=== PATIENT | male | born 1985 | race Caucasian/White ===

== ENCOUNTER → 2016-11-21 | Outpatient (REF) | payer SELFPAY | LOC: M SFHCCLAY 06:59 | PROVIDERS: ATTEND Nurse Practitioner Family | DX: Z20.2 Contact with and (suspected) exposure to infections with a predominantly sexual mode of transmission (principal) ==

== ENCOUNTER 2017-09-13 21:40 | Emergency (ER) | payer SELFPAY ==
[~2017-09-13] VITALS: Ht 177.8 cm; Wt 72.7 kg
[2017-09-13] MEDS ORDERED: FLUORESCEIN OPHTH 1 MG STRIP OS ONE (23:15)
[2017-09-13] MEDS ORDERED: TETRACAINE 0.5% OPHTH SOLN 4ML OS ONE (23:15)
[2017-09-13] MEDS ORDERED: ERYTOIN8 OS (23:30)
[2017-09-13 23:36] VITALS: BP 127/83
[2017-09-13] MEDS ORDERED: ERYTHROMYCIN OPHTH OINT OS ONE (23:45)
== END 2017-09-13 23:39 | disposition home or self-care (01) ==
LOC: M ED 21:40
DX: T15.02XA Foreign body in cornea, left eye, initial encounter (principal); Y92.9 Unspecified place or not applicable; Y93.89 Activity, other specified

== ENCOUNTER → 2019-01-26 | Outpatient (CLI) | payer SELFPAY ==
[~2019-01-26] MED LIST: ERYTOIN8 OS
--- NOTE | 2019-01-27 10:35 | REP ---
Clinical: Left ankle injury/sprain . Technique: AP, lateral, bilateral oblique views left ankle . Findings: Moderate lateral swelling consist with inversion injury. No acute fracture or dislocation. Joint spaces are intact and normal. Ankle mortise appears stable. No subcutaneous emphysema or radiodense foreign body. Impression: Moderate lateral swelling. No acute fracture or dislocation.
== END ==
LOC: M CLY 15:14
PROVIDERS: ATTEND Family Medicine
DX: S96.912A Strain of unspecified muscle and tendon at ankle and foot level, left foot, initial encounter (principal); X58.XXXA Exposure to other specified factors, initial encounter; Y92.89 Other specified places as the place of occurrence of the external cause; Y93.9 Activity, unspecified; Y99.9 Unspecified external cause status

== ENCOUNTER → 2025-09-21 | Outpatient (REF) | payer SELFPAY ==
[2025-09-21 13:07] LABS: ALT/SGPT 41 U/L (7.0-40); AST/SGOT 26 U/L (<34); CALCIUM LEVEL 9.3 MG/DL (8.5-10.1); CARBON DIOXIDE LEVEL 29 MMOL/L (20-31); CHLORIDE LEVEL 100 MMOL/L (98-107); CHOLESTEROL LEVEL 204 MG/DL (<200); CHOLESTEROL RISK RATIO 2.91 (<5); CREATININE FOR GFR 0.98 MG/DL (0.70-1.30); GLOMERULAR FILTRATION RATE > 90.0 (>60); LDL CHOLESTEROL 114.9 MG/DL (<100); NON-HDL-C 134.1 MG/DL; POTASSIUM SERUM 4.6 MMOL/L (3.5-5.1); SODIUM LEVEL 138 MMOL/L (136-145); TRIGLYCERIDES LEVEL 96 MG/DL (<150)
[2025-09-21 13:28] LABS: ESTIMATED AVERAGE GLUCOSE 100.0 MG/DL (60-110)
== END ==
LOC: M SFHCCLAY 08:52
PROVIDERS: ATTEND Physician Assistant
DX: Z00.00 Encounter for general adult medical examination without abnormal findings (principal)